=== PATIENT | female | born 1965 | race Caucasian/White ===

== ENCOUNTER 2017-11-30 09:54 | Emergency (ER) | payer BC, OTHER ==
[~2017-11-30] VITALS: Ht 167.6 cm; Wt 64.4 kg
[2017-11-30 09:54] VITALS: Ht 167.6 cm; Wt 64.4 kg
[~2017-11-30 09:54] MED LIST: ALBUAER2 INH; CHOL100027 PO; FLUT50SP14 NAE; LAMO150T PO; SUMA100T16 PO
[2017-11-30] MEDS ORDERED: SODIUM CHLORIDE 0.9% 1000ML 1,000 ML IV SCH (10:02)
[2017-11-30] MEDS ORDERED: LORAZEPAM 2 MG/ML 1 ML VIAL IV STA (10:15)
[2017-11-30] MEDS ORDERED: RANITIDINE HCL 50 MG/100 ML D5W IV STA (10:15)
[2017-11-30] MEDS ORDERED: METHYLPREDNISOLONE 125 MG VIAL IV STA (10:15)
[2017-11-30] MEDS ORDERED: DiphenhydrAMINE HCL 50 MG/ML VIAL IV STA (10:15)
[2017-11-30] MEDS ORDERED: SODIUM CHLORIDE 0.9% 1000ML 1,000 ML IV STA (10:15)
[2017-11-30] MEDS ORDERED: DiphenhydrAMINE HCL 50 MG/ML VIAL ONE (10:16)
[2017-11-30] MEDS ORDERED: METHYLPREDNISOLONE 125 MG VIAL ONE (10:16)
[2017-11-30 10:24] VITALS: O2SAT 100
[2017-11-30 10:39] LABS: BASO % 0.2 %; BASO ABS # 0.01 K/uL (0-0.2); EOS % 1.2 %; EOS ABS # 0.05 K/uL (0-0.5); HEMATOCRIT 37.7 % (37-47); HEMOGLOBIN 12.8 g/dL (12.0-16.0); IG# 0.01 K/uL (0.00-0.02); LYMPH % 25.8 %; LYMPH ABS # 1.09 K/uL (1.2-3.4); MEAN CELL VOLUME 86.3 fL (80-100); MEAN CORPUSCULAR HEMOGLOBIN 29.3 pg (25-34); MEAN PLATELET VOLUME 9.1 fL (7.4-10.4); MONO % 10.9 %; MONO ABS # 0.46 K/uL (0.11-0.59); NEUT % 61.7 %; NEUT ABS # 2.61 K/uL (1.4-6.5); PLATELET COUNT 233 K/uL (130-400); RED CELL DISTRIBUTION WIDTH CV 11.6 % (11.5-14.5); RED CELL DISTRIBUTION WIDTH SD 36.8 fL (36.4-46.3); WHITE BLOOD COUNT 4.23 K/uL (4.8-10.8)
[2017-11-30] MEDS ORDERED: OPTIRAY 320 IV PRN (10:45)
--- NOTE | 2017-11-30 10:45 | DIAGNOSTIC IMAGING REPORT ---
CT HEAD WITHOUT CONTRAST (CT) CLINICAL HISTORY: Left-sided weakness POSSIBLE STROKE COMPARISON STUDY: 05/17/2012 TECHNIQUE: Axial CT of the brain is performed from the vertex to the skull base. IV contrast was not administered for this examination. A dose lowering technique was utilized adhering to the principles of ALARA. CT DOSE: FINDINGS: No intra or extra-axial mass lesions are visualized. There is no CT evidence of acute cortical infarction. There is no evidence of midline shift. There is no acute hemorrhage. No calvarial fractures are visualized. There are minimal white matter hypodensities likely on a small vessel basis. There is no evidence of pathologic ventricular dilatation. There is no evidence of acute sinusitis IMPRESSION: No acute intracranial findings Electronically signed by: Yohan Davis M.D. 11/30/2017 10:43 AM Dictated Date/Time: 11/30/2017 10:42 AM
[2017-11-30 10:47] LABS: INR 1.1 (0.9-1.1); PTT PATIENT 29.7 SECONDS (21.0-31.0)
--- NOTE | 2017-11-30 10:52 | DIAGNOSTIC IMAGING REPORT ---
CT NECK ANGIO WITH CONTRAST CLINICAL HISTORY: Left-sided weakness. Possible stroke COMPARISON STUDY: No previous studies for comparison. TECHNIQUE: CT angiography was performed from the aortic arch to the skull base. MIP imaging was performed. The patient was scanned in a dynamic helical fashion during intravenous administration of 119 cc of Optiray 320. A dose lowering technique was utilized adhering to the principles of ALARA. CT DOSE: 1019.24 mGy.cm Technique: CT angiogram of the carotid and vertebral arteries was obtained using intravenous contrast and 3-D reconstruction. NASCET criteria was utilized. Findings: The right carotid revealed no evidence of aneurysm and no evidence of dissection. There is no evidence of hemodynamic significant stenosis. The left carotid revealed no evidence of hemodynamic significant stenosis. There is no evidence of aneurysm. There is no evidence of dissection. There is no evidence of hemodynamically significant vertebral stenosis. There is no evidence of vertebral dissection. IMPRESSION: No evidence of hemodynamically significant carotid or vertebral artery stenosis. No evidence of dissection. Electronically signed by: Yohan Davis M.D. 11/30/2017 10:51 AM Dictated Date/Time: 11/30/2017 10:49 AM
--- NOTE | 2017-11-30 10:53 | DIAGNOSTIC IMAGING REPORT ---
HEAD CTA HISTORY: Left-sided weakness. TECHNIQUE: Multiaxial CT images of the head were performed after the intravenous administration of contrast to evaluate the major cerebral vessels. Maximum intensity projection images were also obtained. A dose lowering technique was utilized adhering to the principles of ALARA. COMPARISON: Head CT 11/30/2017. FINDINGS: There is no mass, hematoma, midline shift, or acute infarct. Visualized intracranial internal carotid arteries, distal vertebral arteries, and basilar artery are widely patent. There is no significant stenosis, occlusion, or aneurysm seen within the bilateral ACAs, MCAs, or event staff member. IMPRESSION: No significant stenosis, occlusion, or aneurysm within the [place]. Electronically signed by: Davonte Andrew M.D. 11/30/2017 10:52 AM Dictated Date/Time: 11/30/2017 10:47 AM
--- NOTE | 2017-11-30 10:55 | DIAGNOSTIC IMAGING REPORT ---
CHEST ONE VIEW PORTABLE CLINICAL HISTORY: Stroke COMPARISON STUDY: Chest radiograph May 17, 2012. FINDINGS: Lung volumes are normal. No pneumothorax or pleural effusion is noted. There is no consolidation or evidence for pulmonary edema. Borderline cardiomegaly is noted. The appearance of the chest is unchanged. IMPRESSION: No acute cardiopulmonary findings. Electronically signed by: Joaquin Gilbert M.D. 11/30/2017 10:53 AM Dictated Date/Time: 11/30/2017 10:53 AM
[2017-11-30 10:56] LABS: BLOOD UREA NITROGEN 17 mg/dl (7-18); CALCIUM 8.7 mg/dl (8.5-10.1); CARBON DIOXIDE 25 mmol/L (21-32); GLUCOSE 94 mg/dl (70-99); POTASSIUM 3.9 mmol/L (3.5-5.1); SODIUM 137 mmol/L (136-145)
[2017-11-30 11:01] LABS: CKMB 1.1 ng/ml (0.5-3.6)
[2017-11-30] MEDS ORDERED: PRED20TA2 PO (12:55)
[2017-11-30] MEDS ORDERED: RANI150T3 PO (12:55)
--- NOTE | 2017-11-30 13:04 | EMERGENCY ROOM VISIT NOTE ---
History Report prepared by Kaleb: Joe Oakley Under the Supervision of: Dr. Vinnie Hodge M.D. First contact with patient: 09:58 Stated Complaint: WEAKNESS History of Present Illness The patient is a 52 year old female who presents to the Emergency Room by EMS with complaints of constant altered mental status beginning one hour ago. Per , the patient called him about at 8:57am (about an hour ago) and "could tell something was wrong her". He called EMS at this time. He notes that he left home at 8:30am and the patient appeared normal at that time. The patient's states that the patient is unable to speak or communicate. He states that the patient has weakness of her bilateral arms and legs as well. He states that she has been unable to move the majority of her body. The patient's states that the patient does not appear to have any facial droop currently. He does not believe the patient has missed any recent doses of her Lamictal and states that she is normally very good at taking it. The patient has a history of seizures, but has never had similar symptoms associated with postictal phases of her seizures. She is not on any blood thinners. She had a cardiac catheterization in 2011. The patient is a former smoker (25 years ago). She does not use drugs or alcohol. HPI limited secondary to altered mental status. Source of History: spouse/significant other () History Limited By: AMS Onset: One hour ago Quality: other (altered mental status) Timing: constant Associated Symptoms: + weakness (generalized) Note: Negative: facial droop. Review of Systems See HPI for pertinent positives & negatives. A total of 10 systems reviewed and were otherwise negative. Past Medical & Surgical Medical Problems: (1) Epilepsy (2) Seizures Surgical Problems: (1) Hx of cholecystectomy Family History No pertinent family history stated. Social History Smoking Status: Former Smoker Alcohol Use: none Drug Use: none Marital Status: Current/Historical Medications Scheduled Lamotrigine (Lamictal), 150 MG PO BID Prednisone (Prednisone Tab), 0 PO DAILY Ranitidine Hcl (Zantac), 150 MG PO BID Allergies Coded Allergies: Shellfish Allergy (Verified Allergy, Severe, ., 11/30/17) Chocolate (Verified Allergy, Mild, 11/30/17) Fish Oil (Verified Allergy, Mild, 11/30/17) NUTS (Verified Allergy, Mild, 11/30/17) NSAIDs (Verified Allergy, Unknown, ., 11/30/17) Peanut-containing Drug Products (Verified Allergy, Unknown, peanut butter , 11/30/17) Physical Exam Vital Signs Date Time Temp Pulse Resp B/P (MAP) Pulse Ox O2 Delivery O2 Flow Rate FiO2 11/30/17 13:16 36.7 70 14 123/70 98 11/30/17 13:04 70 14 123/70 98 Room Air 11/30/17 12:34 67 18 99 Room Air 11/30/17 12:29 68 17 99 Room Air 11/30/17 11:59 74 20 98 Room Air 11/30/17 11:29 70 18 96 Room Air 11/30/17 11:24 66 18 97 Room Air 11/30/17 11:01 118/69 11/30/17 10:54 71 24 98 Room Air 11/30/17 10:46 123/70 11/30/17 10:44 74 18 132/72 98 Room Air 11/30/17 10:32 132/72 11/30/17 10:30 134/75 11/30/17 10:24 78 16 135/88 100 Room Air 11/30/17 10:24 74 17 100 11/30/17 10:24 100 Room Air 11/30/17 10:17 76 11/30/17 10:17 135/88 11/30/17 09:54 36.7 73 18 137/76 97 Room Air Physical Exam GENERAL: Awake, alert, well-appearing, in no acute distress HENT: Normocephalic, atraumatic. Oropharynx unremarkable. EYES: Normal conjunctiva. Sclera non-icteric. NECK: Supple. No nuchal rigidity. FROM. No JVD. RESPIRATORY: Clear to auscultation. CARDIAC: Regular rate, normal rhythm. Extremities warm and well perfused. Pulses equal. ABDOMEN: Soft, non-distended. No tenderness to palpation. No rebound or guarding. No masses. RECTAL: Deferred. MUSCULOSKELETAL: Chest examination reveals no tenderness. The back is symmetrical on inspection without obvious abnormality. There is no CVA tenderness to palpation. No joint edema. LOWER EXTREMITIES: Calves are equal size bilaterally and non-tender. No edema. No discoloration. NEURO: Follows commands. Unable to lift arms. SKIN: No rash or jaundice noted. Medical Decision & Procedures ER Provider Diagnostic Interpretation: Radiology results as stated below per my review and radiologist interpretation: CT HEAD WITHOUT CONTRAST (CT) FINDINGS: No intra or extra-axial mass lesions are visualized. There is no CT evidence of acute cortical infarction. There is no evidence of midline shift. There is no acute hemorrhage. No calvarial fractures are visualized. There are minimal white matter hypodensities likely on a small vessel basis. There is no evidence of pathologic ventricular dilatation. There is no evidence of acute sinusitis IMPRESSION: No acute intracranial findings Electronically signed by: Yohan Davis M.D. 11/30/2017 10:43 AM HEAD CTA FINDINGS: There is no mass, hematoma, midline shift, or acute infarct. Visualized intracranial internal carotid arteries, distal vertebral arteries, and basilar artery are widely patent. There is no significant stenosis, occlusion, or aneurysm seen within the bilateral ACAs, MCAs, or [place]phalt [place]. IMPRESSION: No significant stenosis, occlusion, or aneurysm within the [place]. Electronically signed by: Davonte Andrew M.D. 11/30/2017 10:[address] NECK ANGIO WITH CONTRAST Findings: The right carotid revealed no evidence of aneurysm and no evidence of dissection. There is no evidence of hemodynamic significant stenosis. The left carotid revealed no evidence of hemodynamic significant stenosis. There is no evidence of aneurysm. There is no evidence of dissection. There is no evidence of hemodynamically significant vertebral stenosis. There is no evidence of vertebral dissection. IMPRESSION: No evidence of hemodynamically significant carotid or vertebral artery stenosis. No evidence of dissection. Electronically signed by: Yohan Davis M.D. 11/30/2017 10:51 AM CHEST ONE VIEW PORTABLE FINDINGS: Lung volumes are normal. No pneumothorax or pleural effusion is noted. There is no consolidation or evidence for pulmonary edema. Borderline cardiomegaly is noted. The appearance of the chest is unchanged. IMPRESSION: No acute cardiopulmonary findings. Electronically signed by: Joaquin Gilbert M.D. 11/30/2017 10:53 AM Laboratory Results 11/30/17 10:21 Red Blood Count 4.37, Mean Corpuscular Volume 86.3, Mean Corpuscular Hemoglobin 29.3, Mean Corpuscular Hemoglobin Concent 34.0, Mean Platelet Volume 9.1, Neutrophils (%) (Auto) 61.7, Lymphocytes (%) (Auto) 25.8, Monocytes (%) (Auto) 10.9, Eosinophils (%) (Auto) 1.2, Basophils (%) (Auto) 0.2, Neutrophils # (Auto ) 2.61, Lymphocytes # (Auto) 1.09, Monocytes # (Auto) 0.46, Eosinophils # (Auto ) 0.05, Basophils # (Auto) 0.01 11/30/17 10:21 Test 11/30/17 10:17 11/30/17 10:21 11/30/17 11:55 Bedside Prothrombin Time INR 1.1 (0.9-1.1) White Blood Count 4.23 K/uL (4.8-10.8) Red Blood Count 4.37 M/uL (4.2-5.4) Hemoglobin 12.8 g/dL (12.0-16.0) Hematocrit 37.7 % (37-47) Mean Corpuscular Volume 86.3 fL (80-100) Mean Corpuscular Hemoglobin 29.3 pg (25-34) Mean Corpuscular Hemoglobin Concent 34.0 g/dl (32-36) Platelet Count 233 K/uL (130-400) Mean Platelet Volume 9.1 fL (7.4-10.4) Neutrophils (%) (Auto) 61.7 % Lymphocytes (%) (Auto) 25.8 % Monocytes (%) (Auto) 10.9 % Eosinophils (%) (Auto) 1.2 % Basophils (%) (Auto) 0.2 % Neutrophils # (Auto) 2.61 K/uL (1.4-6.5) Lymphocytes # (Auto) 1.09 K/uL (1.2-3.4) Monocytes # (Auto) 0.46 K/uL (0.11-0.59) Eosinophils # (Auto) 0.05 K/uL (0-0.5) Basophils # (Auto) 0.01 K/uL (0-0.2) RDW Standard Deviation 36.8 fL (36.4-46.3) RDW Coefficient of Variation 11.6 % (11.5-14.5) Immature Granulocyte % (Auto) 0.2 % Immature Granulocyte # (Auto) 0.01 K/uL (0.00-0.02) Prothrombin Time 11.2 SECONDS (9.0-12.0) Prothromb Time International Ratio 1.1 (0.9-1.1) Activated Partial Thromboplast Time 29.7 SECONDS (21.0-31.0) Partial Thromboplastin Ratio 1.1 Anion Gap 6.0 mmol/L (3-11) Est Creatinine Clear Calc Drug Dose 68.4 ml/min Estimated GFR () 85.2 Estimated GFR (Non- 73.5 BUN/Creatinine Ratio 18.5 (10-20) Calcium Level 8.7 mg/dl (8.5-10.1) Magnesium Level 1.9 mg/dl (1.8-2.4) Total Creatine Kinase 94 U/L (26-192) Creatine Kinase MB 1.1 ng/ml (0.5-3.6) Creatine Kinase MB Ratio 1.2 (0-3.0) Troponin I < 0.015 ng/ml (0-0.045) Urine Color YELLOW Urine Appearance CLEAR (CLEAR) Urine pH 8.0 (4.5-7.5) Urine Specific [place] 1.024 (1.000-1.030) Urine Protein NEG (NEG) Urine Glucose (UA) NEG (NEG) Urine Ketones NEG (NEG) Urine Occult Blood NEG (NEG) Urine Nitrite NEG (NEG) Urine Bilirubin NEG (NEG) Urine Urobilinogen NEG (NEG) Urine Leukocyte Esterase NEG (NEG) Labs reviewed by ED physician. Medications Administered Medications (Trade) Dose Ordered Sig/Sera Route Start Time Stop Time Status Last Admin Dose Admin Diphenhydramine HCl (Benadryl Inj) 50 mg NOW STAT IV 11/30/17 10:15 11/30/17 10:17 DC 11/30/17 10:15 50 MG Methylprednisolone Sodium Succinate (Solu-Medrol IV) 125 mg NOW STAT IV 11/30/17 10:15 11/30/17 10:17 DC 11/30/17 10:15 125 MG Lorazepam (Ativan Inj) 1 mg NOW STAT IV 11/30/17 10:15 11/30/17 10:17 DC 11/30/17 10:15 1 MG Ranitidine HCl (zANTac IV) 50 mg NOW STAT IV 11/30/17 10:15 11/30/17 10:17 DC 11/30/17 10:28 50 MG Sodium Chloride 1,000 ml @ 999 mls/hr Q1H1M STAT IV 11/30/17 10:15 11/30/17 11:15 DC 11/30/17 10:15 999 MLS/HR ECG Per My Interpretation Indication: altered mental status Rate (beats per minute): 88 Rhythm: normal sinus Findings: other (No ST elevation or depression. Normal axis. ) ED Course 09: Past medical records reviewed. The patient was evaluated in room B11B. A complete history and physical examination was performed. 1002: A stroke alert was called. The patient was taken directly to CT. Ordered Sodium Chloride 1000 ml @ 50 mls/hr. 1010: The patient was moved to room B1. 1015: The patient appears to be having a reaction to the IV contrast. Ordered Sodium Chloride 1000 ml @ 999 mls/hr, Zantac 50 mg IV, Ativan Inj 1 mg IV, Solu- Medrol 125 mg IV, Benadryl Inj 50 mg IV. 1027: The patient is now able to answer questions and move all extremities. 1037: I checked in on the patient. She is feeling much better. She was moved to room B2. 1250: Upon reexamination the patient is resting comfortably. She is back to her baseline and has been able to ambulate normally. I discussed results and treatment plan with the patient. She verbalizes agreement and understanding. The patient is ready for discharge. Medical Decision Differential diagnosis: Etiologies such as metabolic, infection, hypoglycemia, electrolyte abnormalities , cardiac sources, intracerebral event, toxicologic, neurologic, as well as others were entertained. This is a 52-year-old female who presents the emergency department complaining of unresponsive episode. Due to the nature of the abrupt onset of the patient' s symptoms a stroke alert was immediately initiated however upon further evaluation I feel the patient is most likely suffering from a seizure with postictal.. The patient was given 1 mg of Ativan with almost immediate cessation of her symptoms. In addition the patient had received a CTA of the head using the IV dye and she developed a rash from this. Because of this she was also given Benadryl Solu-Medrol and Zantac. Repeat examination revealed improvement of patient's symptoms. The patient was observed for at least 3 hours in the emergency department and she steadily improved to her baseline. Based on this I felt that the patient can be safely discharged home. She has not had a seizure in 4-5 years and I feel based on this that the patient's seizure medication does not need to be changed. I did stress the need for follow-up with the patient's neurologist. Patient and family were in agreement with the treatment plan. Medication Reconcilliation Current Medication List: was personally reviewed by me Blood Pressure Screening Patient's blood pressure: Normal blood pressure Blood pressure disposition: Did not require urgent referral Impression Primary Impression: Seizure Scribe Attestation The scribe's documentation has been prepared under my direction and personally reviewed by me in its entirety. I confirm that the note above accurately reflects all work, treatment, procedures, and medical decision making performed by me. Departure Information Dispostion Home / Self-Care Prescriptions Ranitidine Hcl (ZANTAC) 150 Mg Tab 150 MG PO BID for 5 Days, #10 TAB Prov: Vinnie Hodge MD 11/30/17 Prednisone (Prednisone Tab) 20 Mg Tab 0 PO DAILY, #7 TAB 2 TABS DAILY FOR 2 DAYS, THEN 1 TAB DAILY FOR 2 DAYS, THEN 1/2 TAB DAILY FOR 2 DAYS. Prov: Vinnie Hodge MD 11/30/17 Referrals Corrine Christianson M.D. (PCP) Forms HOME CARE DOCUMENTATION FORM, IMPORTANT VISIT INFORMATION Patient Instructions ED Seizure Recurrent, [facility] Additional Instructions Follow up with Dr Velasco's office Take 50 mg Benadryl every 6 hours as needed for rash You received narcotic or benzodiazepene medication while in the emergency room today. This is an addictive medication that may cause drowziness as well as constipation. Do not drive, operate heavy machinery, or drink alcohol under the influence of this medication. You have been examined and treated today on an emergency basis only. This is not a substitute for, or an effort to provide, complete comprehensive medical care. It is impossible to recognize and treat all injuries or illnesses in a single emergency department visit. It is therefore important that you follow up closely with Dr Rutherford. Call as soon as possible for an appointment. Thank you for your time and consideration. I look forward to speaking with you again soon. Please don't hesitate to call us if you have any questions.
[2017-11-30 13:16] VITALS: BP 123/70; PULSE 70; TEMP 36.7; O2SAT 98
== END 2017-11-30 13:17 | disposition home or self-care (01) ==
LOC: EDBD 09:54 → C.EDB 09:55
DX: G40.909 Epilepsy, unspecified, not intractable, without status epilepticus (principal); Z87.891 Personal history of nicotine dependence; Z90.49 Acquired absence of other specified parts of digestive tract; Z98.890 Other specified postprocedural states; Z91.013 Allergy to seafood; Z91.018 Allergy to other foods; Z88.8 Allergy status to other drugs, medicaments and biological substances; Z79.899 Other long term (current) drug therapy